=== PATIENT | female | born 1985 | race Native Hawaiian/Other Pacific Islander ===

== ENCOUNTER 2018-09-06 13:04 | Outpatient (CLI) | payer OTHER | END 2018-09-06 22:18 | disposition home or self-care (01) | LOC: MAMMO 13:04 | DX: Z12.31 Encounter for screening mammogram for malignant neoplasm of breast (principal) ==

== ENCOUNTER 2020-02-19 10:23 | Outpatient (CLI) | payer OTHER | END 2020-02-19 21:46 | disposition home or self-care (01) | LOC: MRI 10:23 | PROVIDERS: ATTEND Orthopaedic Surgery | DX: Q85.00 Neurofibromatosis, unspecified (principal) | CPT/HCPCS: A9576 ==

== ENCOUNTER 2021-03-11 10:04 | Outpatient (CLI) | payer OTHER | END 2021-03-11 19:36 | disposition home or self-care (01) | LOC: MAMMO 10:04 | PROVIDERS: ATTEND Nurse Practitioner Family | DX: Z12.31 Encounter for screening mammogram for malignant neoplasm of breast (principal) ==

== ENCOUNTER 2021-08-17 10:05 | Outpatient (CLI) | payer OTHER | END 2021-08-17 19:00 | disposition home or self-care (01) | LOC: US 10:05 | PROVIDERS: ATTEND Nurse Practitioner Family | DX: E04.1 Nontoxic single thyroid nodule (principal) ==